=== PATIENT | female | born 1950 | race Caucasian/White ===

== ENCOUNTER 2023-11-16 07:07 | Outpatient (CLI) | payer MEDICARE, SELFPAY ==
[2023-11-16 12:36] LABS: Hematocrit 42.8 % (37.0-47.0); Hemoglobin 13.4 g/dL (12.0-15.0); Mean Corpuscular HGB Conc 31.3 g/dl (32-36); Mean Corpuscular Hemoglobin 28.2 pg (26-34); Mean Corpuscular Volume 90.1 fl (80-100); Mean Platelet Volume 10.7 fl (7.4-10.4); Platelet Count Result 349 k/mm3 (150-375); Red Blood Count 4.75 M/mm3 (4.2-5.4); Red Cell Distribution Width 13.6 % (11.5-14.5); White Blood Count 13.4 K/mm3 (4.5-10.0)
[2023-11-16 12:45] LABS: Alanine Aminotransferase 14 U/L (6-35); Albumin Level 4.5 g/dL (3.5-5.1); Alkaline Phosphatase 114 U/L (38-126); Anion Gap 7 mmol/L (4-12); Aspartate Amino Transferase 25 U/L (14-36); Bilirubin,Total 1.8 mg/dL (0.2-1.3); Blood Urea Nitrogen 16 mg/dL (7-17); Calcium 9.2 mg/dL (8.4-10.2); Carbon Dioxide 28 mmol/L (22-30); Chloride 106 mmol/L (98-107); Estimated Glomerular Filt Rate > 60; Glucose 92 mg/dL (65-110); Potassium 4.2 mmol/L (3.4-5.0); Sodium 141 mmol/L (137-145)
== END 2023-11-16 11:37 ==
PROVIDERS: PCP Family Medicine; Visit Provider Family Medicine
DX: R41.3 Other amnesia (principal); F03.90 Unspecified dementia, unspecified severity, without behavioral disturbance, psychotic disturbance, mood disturbance, and anxiety; N32.81 Overactive bladder; Z76.89 Persons encountering health services in other specified circumstances
CPT/HCPCS: 36415; 80053; 85027

== ENCOUNTER 2024-04-19 01:18 | Day surgery (SDC) | payer MEDICARE, SELFPAY ==
[2024-04-10 13:02] VITALS: BMI 44.9
--- NOTE | 2024-04-14 14:05 | PC.NURSE ---
04/14/2024- SPOKE WITH PATIENT REGARDING PREP- SHE STATES SHE IS UNABLE TO DO ANYTHING OTHER THAN MIRALAX. STATES WHEN SHE DID LAXATIVE TABS AND MAG. CITRATE IT MADE HER SO SICK IT CAME OUT HER NOSE. HER LAST 2 COLONOSCOPYS IN [facility] SHE DID CLEAR LIQ FOR 2-3 DAYS AND DAY BEFORE PROC. DRANK CLEAR LIQ AND DID MIRALAX/GATORADE SOLUTION AND THAT IS WHAT SHE IS PLANNING TO DO THIS TIME. I DID EXPLAIN I COULD ORDER HER ZOFRAN FOR NAUSEA AND SHE STATES SHE WON'T NEED IT BECAUSE SHE IS ONLY DOING MIRALAX. I DID EXPLAIN IF SHE IS NOT CLEANED OUT GOOD HE MAY NOT BE ABLE TO COMPLETE THE PROCEDURE AND SHE IS NOT CONCERNED THAT WILL HAPPEN.
[2024-04-19 09:51] VITALS: BP 152/84; PULSE 80; RESP 18; TEMP 36.3; O2SAT 99; BMI 43.6
[2024-04-19] MEDS: LACTATED RINGERS 1,000 ML 150 ML IV CONT (10:05)
--- NOTE | 2024-04-19 10:12 | PM.HPGS ---
History of Present Illness History of Present Illness Consent: Risks, benefits, and alternatives have been discussed and questions answered. Patient agrees to proceed with procedure. Chief complaint: neoplasm screening Narrative: Kecia Lopez is a 73 year old female here for colonoscopy, mother had colon cancer Review of Systems Review of Systems: All systems reviewed & are unremarkable except as noted in HPI and below PMFSH Past Medical History Medical History (Updated 04/19/24 @ 10:13 by Nirmal Arroyo MD) Family history of colon cancer Social History Social History Smoking status: Never smoker Alcohol intake: never Substance use: never Substance use type: does not use Living arrangements: alone Spiritual care concerns: No Meds Home Medications and Allergies Home Medications Medication Instructions Recorded Confirmed Type No Home Medications 04/10/24 04/19/24 History Allergies Allergy/AdvReac Type Severity Reaction Status Date / Time No Known Allergies Allergy Verified 04/19/24 09:50 Vital Signs Vital Signs - 24 hr 04/19/24 09:51 Temperature 97.3 F L Pulse Rate 80 Respiratory Rate 18 Blood Pressure 152/84 H Pulse Oximetry 99 Oxygen Delivery Room Air Exam Const: General: comfortable and no acute distress HENMT: Face/Nose/Sinus: Normal nares present Eyes: General: appearance normal, both eyes and all related structures Neck: Neck: no JVD Resp: Auscultation: clear to auscultation bilaterally Cardio: Rate: regular rate Rhythm: regular rhythm GI: Inspection: non-distended GI Palp: Yes Soft to palpation Skin: General skin exam: normal color Neuro: General: gait normal Speech: normal speech Extrem: General: normal to inspection Psych: Mental Status: mental status grossly normal Assessment and Plan Assessment and plan (1) Family history of colon cancer: Code(s): Z80.0 - Family history of malignant neoplasm of digestive organs Status: Acute Assessment and Plan: colonoscopy
--- NOTE | 2024-04-19 10:24 | P.PNAN_ITS ---
Anes - Initial Pre Proc Eval Procedure: Operation Date: 04/19/24 10:30 Proposed Procedures p Screening Colonoscopy - Nirmal Arroyo MD Date/Time: 04/19/24 10:24 Surgeon: Nirmal Arroyo MD Pre Op Diagnosis: neoplasm screening Patient Data Age: 73 Gender: F Height: 1.52 m Weight: 101.3 kg Last Vital Signs Temp 36.3 C L 04/19/24 09:51 Pulse 80 04/19/24 09:51 Resp 18 04/19/24 09:51 BP 152/84 H 04/19/24 09:51 Pulse Ox 99 04/19/24 09:51 O2 Del Method Room Air 04/19/24 09:51 Allergies Allergy/AdvReac Type Severity Reaction Status Date / Time No Known Allergies Allergy Verified 04/19/24 09:50 Home Medications Medication Instructions Recorded Confirmed Type No Home Medications 04/10/24 04/19/24 History Patient hx anesthesia problems: none Family hx anesthesia problems: none Results Review: All pre-operative results and documents have been reviewed as part of the pre-operative evaluation. ON LICENSE OF [facility] Past Medical History Medical History Dementia Family history of colon cancer Social History Social History Smoking status: Never smoker Alcohol intake: never Substance use: never Substance use type: does not use Living arrangements: alone Spiritual care concerns: No Anes - Eval Final PreProcedure Day of Procedure 04/19/24 10:24 Patient weight: morbidly obese Heart: regular rate and rhythm Lungs: clear to auscultation Airway: Mallampati scale class II Neurological: alert and oriented Last oral intake: >/= 8 hours ASA classification: III Emergent: no Anesthetic plan: proceed Anesthesia type and monitoring: general GIVS Results Review: All pre-operative results and documents have been reviewed as part of the pre- operative evaluation. Informed Consent: The patient's anesthetic plan and its attendant risks and benefits were discussed with the patient/family/POA. Questions were solicited and answers provided to the satisfaction of the patient/family/POA.
[2024-04-19 10:45] VITALS: BP 113/65; PULSE 67; RESP 23; O2SAT 94
[2024-04-19 10:55] VITALS: BP 107/68; PULSE 60; RESP 24; O2SAT 94
[2024-04-19 11:05] VITALS: BP 108/83; PULSE 60; RESP 18; O2SAT 98
== END 2024-04-19 11:23 | disposition home or self-care (01) ==
PROVIDERS: PCP Family Medicine; Visit Provider Internal Medicine Gastroenterology
PROC: 0DJD8ZZ Inspection of Lower Intestinal Tract, Via Natural or Artificial Opening Endoscopic (ICD-10-PCS; CPT 45378; principal; 2024-04-19 10:30)
DX: Z12.11 Encounter for screening for malignant neoplasm of colon (principal); D12.2 Benign neoplasm of ascending colon; D12.4 Benign neoplasm of descending colon; K64.8 Other hemorrhoids; Z80.0 Family history of malignant neoplasm of digestive organs; F03.90 Unspecified dementia, unspecified severity, without behavioral disturbance, psychotic disturbance, mood disturbance, and anxiety; E66.01 Morbid (severe) obesity due to excess calories; Z68.41 Body mass index [BMI] 40.0-44.9, adult
CPT/HCPCS: 45385; 88305; J2704; J7120

== ENCOUNTER 2024-06-01 12:56 | Outpatient (CLI) | payer MEDICARE, SELFPAY ==
--- NOTE | ~2024-06-01 | CT_ITS ---
EXAMINATION: CT brain wo con DATE: 06/01/2024 13:12 INDICATION: Amnesia TECHNIQUE: Computed tomography (CT) of the head was performed without intravenous contrast. Sagittal and coronal reconstructions were performed. The mA was adjusted according to patient size. Iterative reconstruction technique was employed. The dose-length product was 599.57 mGy-cm. COMPARISON: None FINDINGS: No acute intracranial hemorrhage, acute infarction or abnormal extra axial fluid collection. Small ol d lacunar infarct at the anterior limb of the right internal capsule. There is mild scattered white m atter hypoattenuation consistent with chronic small vessel ischemic disease. Ventricles are normal a nd symmetric. No mass/mass effect. Changes of bilateral intraocular lens replacement. The orbits, par anasal sinuses and mastoid air cells are normal. Intracranial calcified cerebral atherosclerosis is n oted. IMPRESSION: 1. No acute intracranial process. 2. 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 Reviewed, dictated and finalized at location B. [employer] IMPRESSION: 1. No acute intracranial process. 2. Small old lacunar infarct at the anterior limb of the right internal capsule and mild scattered white matter hypoattenuation consistent with chronic small vessel ischemic disease.
== END 2024-06-01 12:57 | disposition home or self-care (01) ==
LOC: MICIMG 12:57
PROVIDERS: PCP Family Medicine; Visit Provider Family Medicine
DX: I63.81 Other cerebral infarction due to occlusion or stenosis of small artery (principal); R90.82 White matter disease, unspecified; R41.3 Other amnesia
CPT/HCPCS: 70450

== ENCOUNTER 2024-07-06 11:43 | Outpatient (CLI) | payer MEDICARE, SELFPAY ==
[2024-07-06 12:34] LABS: Hematocrit 40.7 % (37.0-47.0); Hemoglobin 13.2 g/dL (12.0-15.0); Mean Corpuscular HGB Conc 32.4 g/dl (32-36); Mean Corpuscular Hemoglobin 29.4 pg (26-34); Mean Corpuscular Volume 90.6 fl (80-100); Mean Platelet Volume 10.4 fl (7.4-10.4); Platelet Count Result 338 k/mm3 (150-375); Red Blood Count 4.49 M/mm3 (4.2-5.4); Red Cell Distribution Width 13.4 % (11.5-14.5); White Blood Count 11.2 K/mm3 (4.5-10.0)
[2024-07-06 12:46] LABS: Alanine Aminotransferase 14 U/L (6-35); Alkaline Phosphatase 127 U/L (38-126); Anion Gap 8 mmol/L (4-12); Aspartate Amino Transferase 27 U/L (14-36); Blood Urea Nitrogen 19 mg/dL (7-17); Calcium 9.4 mg/dL (8.4-10.2); Carbon Dioxide 30 mmol/L (22-30); Chloride 104 mmol/L (98-107); Estimated Glomerular Filt Rate > 60; Glucose 89 mg/dL (65-110); Potassium 4.2 mmol/L (3.4-5.0); Sodium 142 mmol/L (137-145)
== END 2024-07-06 11:44 | disposition home or self-care (01) ==
PROVIDERS: PCP Family Medicine; Visit Provider Family Medicine
DX: Z00.00 Encounter for general adult medical examination without abnormal findings (principal); F03.90 Unspecified dementia, unspecified severity, without behavioral disturbance, psychotic disturbance, mood disturbance, and anxiety; D72.829 Elevated white blood cell count, unspecified; N32.81 Overactive bladder
CPT/HCPCS: 36415; 80053; 82607; 84443; 85027

== ENCOUNTER 2024-08-28 07:32 | Outpatient (CLI) | payer MEDICARE, SELFPAY ==
--- NOTE | ~2024-08-28 | US_ITS ---
Limited ABDOMINAL ULTRASOUND (Doppler ultrasound interrogation techniques used as needed for this exa m.) Ordering provider: Christopher Enriquez MD History: . R17 - Unspecified jaundice . Comparison: None. FINDINGS: PANCREAS: Normal echotexture and size. Pancreatic duct measures 1.8 mm. PORTAL VEIN: Hepatopedal flow demonstrated. Portal vein measures 1 cm. LIVER: Normal size and echotexture. The liver measures 17.7 cm. No focal hepatic lesions or perihepat ic fluid collections are identified. BILIARY DUCTS: No intra or extrahepatic biliary dilation. Common bile duct measures 2.4 mm in diamete r which is normal for patient's age. GALLBLADDER: Normal. No stones, sludge, gallbladder wall thickening or pericholecystic fluid. Wall th ickness is 1.5 mm. Negative sonographic Bee's sign. IVC: Normal. Aorta: Normal. FREE FLUID: None visualized within the upper abdomen. IMPRESSION: Slightly prominent pancreatic duct. Otherwise, normal limited abdominal ultrasound. Reviewed, dictated and finalized at location A. IMPRESSION: Slightly prominent pancreatic duct. Otherwise, normal limited abdominal ultraso und.
[2024-08-28 10:24] LABS: Hepatitis B Surface Antigen Negative (Negative)
[2024-08-28 10:30] LABS: HAV RESULT Negative (Negative); Hepatitis B Core IgM Result Negative (Negative)
[2024-08-28 10:42] LABS: Hepatitis C Virus Antibody Negative (Negative)
== END 2024-08-28 07:33 | disposition home or self-care (01) ==
PROVIDERS: PCP Family Medicine; Visit Provider Family Medicine
DX: R17 Unspecified jaundice (principal)
CPT/HCPCS: 36415; 76705; 80074

== ENCOUNTER 2024-09-12 07:53 | Outpatient (CLI) | payer MEDICARE, SELFPAY ==
--- NOTE | ~2024-09-12 | MR_ITS ---
MRI of the abdomen: Clinical indication: Other disease of pancreas. Technique: Axial in and out of phase T1, axial and coronal T2-weighted and fat-suppressed T2 weighted sequences were obtained through the abdomen. Thin and thick slab MRCP was done using axial and stormy nal HASTE sequences. 3-D post-processing was performed on the same workstation. Following intravenous administration of 20 cc MultiHance gadolinium, T1-weighted fat-sat imaging was performed in the axia l and coronal planes. Findings: Multiple gallstones are noted. The common bile duct is normal in course and caliber. No fi lling defects are seen within the CBD. No evidence of intrahepatic biliary ductal dilatation. The gardner creatic duct is normal in size. Liver, spleen, adrenals, kidneys appear normal. Possible 9 mm cystic mass at the pancreatic head. The aorta and the paraaortic regions appear normal. Impression: Possible 9 mm cystic mass the pancreatic head. Reviewed, dictated and finalized at [facility]. Impression: Possible 9 mm cystic mass the pancreatic head.
== END 2024-09-12 07:54 | disposition home or self-care (01) ==
PROVIDERS: PCP Family Medicine; Visit Provider Family Medicine
DX: K86.89 Other specified diseases of pancreas (principal)
CPT/HCPCS: 74183; 76376; A9577

== ENCOUNTER 2024-10-06 12:05 | Outpatient (CLI) | payer MEDICARE, SELFPAY ==
[2024-10-06 13:27] LABS: Cholesterol 174 mg/dL (0-200); HDL Direct 52 mg/dL; Triglycerides 85 mg/dL (<150)
[2024-10-06 13:34] LABS: Alanine Aminotransferase 19 U/L (6-35); Albumin Level 4.1 g/dL (3.5-5.1); Alkaline Phosphatase 132 U/L (38-126); Aspartate Amino Transferase 39 U/L (14-36); Bilirubin,Total 1.8 mg/dL (0.2-1.3)
[2024-10-06 13:40] LABS: LDL Cholesterol Direct 81 mg/dL
[2024-10-06 14:01] LABS: Vitamin D 25 Hydroxy 39.5 ng/mL
== END 2024-10-06 12:06 | disposition home or self-care (01) ==
PROVIDERS: PCP Family Medicine; Referring Provider Family Medicine; Visit Provider Nurse Practitioner Family
DX: E03.9 Hypothyroidism, unspecified (principal); E55.9 Vitamin D deficiency, unspecified; R17 Unspecified jaundice
CPT/HCPCS: 36415; 80061; 80076; 82306

== ENCOUNTER 2024-10-12 11:37 | Outpatient (CLI) | payer MEDICARE, SELFPAY ==
[2024-10-12 12:36] LABS: Alanine Aminotransferase 18 U/L (6-35); Albumin Level 4.1 g/dL (3.5-5.1); Alkaline Phosphatase 128 U/L (38-126); Anion Gap 4 mmol/L (4-12); Aspartate Amino Transferase 28 U/L (14-36); Bilirubin,Total 1.3 mg/dL (0.2-1.3); Blood Urea Nitrogen 22 mg/dL (7-17); Calcium 9.1 mg/dL (8.4-10.2); Carbon Dioxide 31 mmol/L (22-30); Chloride 106 mmol/L (98-107); Estimated Glomerular Filt Rate > 60; Glucose 93 mg/dL (65-110); Potassium 4.3 mmol/L (3.4-5.0); Sodium 141 mmol/L (137-145)
== END 2024-10-12 11:38 | disposition home or self-care (01) ==
PROVIDERS: PCP Family Medicine; Visit Provider Nurse Practitioner Family
DX: R60.0 Localized edema (principal)
CPT/HCPCS: 36415; 80053

== ENCOUNTER 2024-10-23 10:19 | Outpatient (CLI) | payer MEDICARE, SELFPAY ==
[2024-10-23 10:45] LABS: Basophils Absolute Auto 0.1 K/mm3 (0.0-0.1); Basophils Percent Auto 0.4 % (0.2-1.2); Eosinophils Absolute Auto 0.1 K/mm3 (0-0.3); Eosinophils Percent Auto 0.9 % (0-4.4); Hematocrit 39.9 % (37.0-47.0); Hemoglobin 12.9 g/dL (12.0-15.0); Immature Granulocyte Absolute 0.04 K/mm3 (0.00-0.031); Immature Granulocyte Percent A 0.3 % (0-0.5); Lymphocytes Absolute Auto 3.98 K/mm3 (0.9-3.2); Mean Corpuscular HGB Conc 32.3 g/dl (32-36); Mean Corpuscular Hemoglobin 27.9 pg (26-34); Mean Corpuscular Volume 86.4 fl (80-100); Mean Platelet Volume 10.2 fl (7.4-10.4); Monocytes Absolute Auto 1.2 K/mm3 (0.1-0.6); Neutrophils Absolute Auto 6.4 K/mm3 (1.3-6.7); Neutrophils Percent Auto 54.4 % (45.5-73.1); Platelet Count Result 329 k/mm3 (150-375); Red Blood Count 4.62 M/mm3 (4.2-5.4); Red Cell Distribution Width 13.7 % (11.5-14.5); White Blood Count 11.7 K/mm3 (4.5-10.0)
[2024-10-23 10:56] LABS: Alanine Aminotransferase 20 U/L (6-35); Albumin Level 4.2 g/dL (3.5-5.1); Alkaline Phosphatase 129 U/L (38-126); Anion Gap 6 mmol/L (4-12); Aspartate Amino Transferase 35 U/L (14-36); Bilirubin,Total 1.7 mg/dL (0.2-1.3); Blood Urea Nitrogen 24 mg/dL (7-17); Carbon Dioxide 29 mmol/L (22-30); Chloride 107 mmol/L (98-107); Cholesterol 172 mg/dL (0-200); Estimated Glomerular Filt Rate > 60; Glucose 91 mg/dL (65-110); HDL Direct 48 mg/dL; Potassium 4.1 mmol/L (3.4-5.0); Sodium 142 mmol/L (137-145); Triglycerides 73 mg/dL (<150)
[2024-10-23 11:05] LABS: NT Pro B Type Natriuretic Pept 106 pg/mL (19.9-100)
[2024-10-23 11:07] LABS: LDL Cholesterol Direct 91 mg/dL
== END 2024-10-23 10:20 | disposition home or self-care (01) ==
PROVIDERS: PCP Family Medicine; Visit Provider Nurse Practitioner Family
DX: D72.829 Elevated white blood cell count, unspecified (principal); F03.90 Unspecified dementia, unspecified severity, without behavioral disturbance, psychotic disturbance, mood disturbance, and anxiety; R60.0 Localized edema; E78.5 Hyperlipidemia, unspecified; E55.9 Vitamin D deficiency, unspecified; R06.02 Shortness of breath
CPT/HCPCS: 36415; 80053; 80061; 82306; 83880; 85025

== ENCOUNTER 2025-01-29 12:30 | Outpatient (RCR) | payer MEDICARE, SELFPAY ==
--- NOTE | 2024-12-14 13:31 | OPREHPOC ---
Outpatient Therapy Plan of Care This is a Multidisciplinary Plan of Care that may contain components documented by all disciplines (PT, OT, and ST.) PT Problem 1 PT Problem #1 Knowledge Deficit PT Goal 1 Goal / Goal Update *independent with HEP for LE exercises * correct donning/doffing of compression garements Target Visit 10 PT Problem 2 PT Problem #2 Impaired Strength PT Goal 1 Goal / Goal Update increase strength of R and L LE's to improve mobility and lymphedema management Target Visit 10 PT Problem 3 PT Problem #3 Impaired Lymphatic System PT Goal 1 Goal / Goal Update improve lymphatic system, evident by: circumferential measurement to 64 cm from bottom of foot 1* R 800 cm 2* L 770 cm no redness over lower leg 3* R 4*L no fibrotic tissue over lower leg 5* R 6*L visible malleoli 7* R 8* L Target Visit 10
--- NOTE | 2024-12-14 13:31 | PTOPEVAL1 ---
Assessment and note entered by Meghan Holden, PT Evaluation Information Assessment Status Evaluation ICD-10 Condition Codes (PT) Difficulty Walking R26.2,Abnormalities of gait and mobility R26.9,Weakness R53.1,Lymphedema I89.0 Onset October 2024 Subjective Information past few months more swelling in her legs; gave her some water pills and did not help her legs; shoes do not fit and have to wear slippers all the time; always have had big legs, but now they are larger; activity: live alone, use cane when walking in community, but not use at home; have correctional therapy director 2x/wk; sister Aisha provides transportation/ she does not drive; few steps from garage into home, have bilateral hand rails; Reported Pain Level Pain Score 0: Self Report Assessment PT Clinical Summary Kecia has the diagnosis of lymphedema and lipedema of both legs. She reports gradual increase in size of legs and now not able to wear her regular shoes. She lives alone and her sister and correctional therapy director assist her PRN. With the evaluation, she has tissue changes with redness and fibrotic tissue over lower legs, malleoli are edematous; increase adipose tissue over lateral hips and thighs; decreased bilateral knee ROM; SKilled PT services are indicated for lymphedema treatment with compression to legs, manual lymph drainage, intermittent compression pump, LE exercises and education for lymphedema management and garment use. Plan of Care Interventions Intermittent Compression Pump,Lymphedema Compression Wraps,Manual Lymph Drainage,Neuro Re- education,Therapeutic Activities,Therapeutic Exercise PT Services Indicated Yes Treatment Frequency and 1-2x/wk for 10 visits Duration These treatments will address the objective and functional deficits as defined above. The patient will be advanced safely and appropriately in order for the patient to progress towards his/her prior level of function. Additional exercises will be introduced and as well as a comprehensive home exercise program upon discharge, if needed, ?to ensure carryover of functional gains achieved in the clinic. This treatment plan has been reviewed and agreement upon by the patient.
--- NOTE | 2025-01-29 13:35 | OPREHPOC ---
Outpatient Therapy Plan of Care This is a Multidisciplinary Plan of Care that may contain components documented by all disciplines (PT, OT, and ST.) PT Problem 1 PT Problem #1 Knowledge Deficit PT Goal 1 Goal / Goal Update *independent with HEP for LE exercises * correct donning/doffing of compression garments ------- 01-29-25 d/c met goals Target Visit 10 Progress Met PT Problem 2 PT Problem #2 Impaired Strength PT Goal 1 Goal / Goal Update increase strength of R and L LE's to improve mobility and lymphedema management ------- 01-29-25 d/c met goal Target Visit 10 Progress Met PT Problem 3 PT Problem #3 Impaired Lymphatic System PT Goal 1 Goal / Goal Update improve lymphatic system, evident by: circumferential measurement to 64 cm from bottom of foot 1* R 800 cm 2* L 770 cm no redness over lower leg 3* R 4*L no fibrotic tissue over lower leg 5* R 6*L visible malleoli 7* R 8* L ------- 01-29-25 d/c met goals 1,5,6,7,8 Target Visit 10 Progress Partially Met
--- NOTE | 2025-01-29 13:36 | PTOPDC ---
Assessment and note entered by Meghan Holden, PT, CLT Assessment Status Discharge ICD-10 Condition Codes (PT) Difficulty Walking R26.2,Abnormalities of gait and mobility R26.9,Weakness R53.1,Lymphedema I89.0 Onset October 2024 Subjective Information past few months more swelling in her legs; gave her some water pills and did not help her legs; shoes do not fit and have to wear slippers all the time; always have had big legs, but now they are larger; activity: live alone, use cane when walking in community, but not use at home; have nut dehydrator operator 2x/wk; sister Aisha provides transportation/ she does not drive; few steps from garage into home, have bilateral hand rails; Reported Pain Level Pain Score Moderate Pain: Ajay Bravo Additional Pain Score Comments over R anterior trunk/ribs Assessment PT Clinical Summary Kecia has received 8 PT sessions/ 4 weeks of conservative care for lymphedema of both legs and trunk. She lives alone, and has caregiver assistance due to cognitive decline. They have assisted her with the compression garments, she is not always able to don them correctly. Compared to the initial evaluation: improved skin integrity with decreased redness over lower leg, only slight fibrotic tissue over L lower leg, visible malleoli and minimal edema over dorsum of feet; education completed to pt, caregiver sister Aisha and caregiver Consuelo Cordero-- compression garments, LE exercises, skin care; she has compression velcro lower leg & foot pieces. Circumferential measurements, compared to the initial evaluation: R LE decreased by 41.3 cm and L by 26.3 cm. The goals were partially met. Kecia would benefit from a home intermittent compression pump to manage her LE and trunk lymphedema. She is not able to perform self manual lymph drainage due to cognitive issues and is inconsistent with the LE exercises and compression garments. She lives alone and has caregiver assist who can help her with the garments and home pump. Discharge PT services. Plan of Care PT Services Indicated No
== END 2025-01-29 15:11 | disposition home or self-care (01) ==
LOC: ANHPT 12:30
PROVIDERS: PCP Family Medicine; Visit Provider Family Medicine
DX: M79.89 Other specified soft tissue disorders (principal)
CPT/HCPCS: 97016; 97110; 97140; 97161; 97530

== ENCOUNTER 2025-04-16 08:25 | Outpatient (CLI) | payer MEDICARE, SELFPAY ==
--- NOTE | ~2025-04-16 | DEXA_ITS ---
Bone Density Report Name: ELIAZAR ARGUETA Age: 74 Sex: Female Ethnicity: White Date of : 1950 Indication: postmenopausal; screening for osteoporosis; height loss; Referring Provider: STEPHEN LEYVA Study: Bone densitometry was performed. Exam Date: April 16, 2025 Accession number: [id number] Bone Density: Region BMD T-score Z-score Classification AP Spine(L1-L4) 0.694 -3.2 -0.8 Osteoporosis Femoral Neck (Left) 0.569 -2.5 -0.4 Osteoporosis Total Hip (Left) 0.666 -2.3 -0.4 Osteopenia Femoral Neck (Right) 0.596 -2.3 -0.2 Osteopenia Total Hip (Right) 0.666 -2.3 -0.4 Osteopenia Total Hip Mean 0.666 -2.3 -0.4 Osteopenia World Health Organization criteria for BMD impression classify patients as: Normal (T-score at or above -1.0), Osteopenia (T-score between -1.0 and -2.5), or Osteoporosis (T-score at or below -2.5). 10-year Fracture Risk: FRAX not reported because: Some T-score for Spine Total or Hip Total or Femoral Neck at or below -2.5 Clinical Information Provided by Patient: Patient maximum height was 62 Menopause Age: 44 No regular weight bearing exercise Onset of menses at age 9 Number of children 0 Impression: The patient has osteoporosis, based on the Total Spine T-score. Discussion: INCREASED RISK OF FRACTURE. BONE DENSITY IS UNDESIRABLY LOW AT ONE OR MORE SKELETAL SITES, CONSISTENT WITH POSTMENOPAUSAL OSTEOPOROSIS. This patient's lowest T-score meets the World Health Organization's (WHO) criteria for osteoporosis at one or more sites (T-score -2.5 or below). In untreated patients, the risk of osteoporotic fracture increases approximately two-fold for each 1.0 SD decrease in T-score. Low bone density is not the only risk factor for fracture; also consider factors such as patient's age, frailty or poor health, risk of falling, risk of injury, previous osteoporotic fracture, family history of osteoporosis, cigarette smoking, low body weight, etc. Not everyone with low bone mineral density has osteoporosis; osteomalacia and other metabolic bone disorders should also be considered. Patients who have osteoporosis should be evaluated for specific diseases and conditions (secondary causes) that may cause or contribute to bone loss. The [place] [employer]ocrinologists (AACE) and National Osteoporosis Foundation (NOF) recommend pharmacologic intervention for all postmenopausal women whose T-score is in this range. The patient should follow a healthful lifestyle (good nutrition with adequate calcium and vitamin D, and appropriate weight-bearing exercise). Follow-Up: Consider a repeat BMD and Vertebral Fracture Assessment (VFA) exam in 2 years or sooner if medically necessary, to reassess this patient's status. Reported by: PAOLA on 04/16/2025 8:56:00 AM. Reviewed, dictated and finalized at location A.
== END 2025-04-16 08:26 | disposition home or self-care (01) ==
LOC: MICIMG 08:26
PROVIDERS: PCP Family Medicine; Visit Provider Family Medicine
DX: M81.0 Age-related osteoporosis without current pathological fracture (principal); M85.89 Other specified disorders of bone density and structure, multiple sites; Z78.0 Asymptomatic menopausal state; Z13.820 Encounter for screening for osteoporosis; Z12.31 Encounter for screening mammogram for malignant neoplasm of breast
CPT/HCPCS: 77080